=== PATIENT | male | born 1960 | race Caucasian/White ===

== ENCOUNTER 2022-09-21 15:37 | Inpatient (IN) | payer OTHER ==
[~2022-09-21] VITALS: Ht 180.3 cm; Wt 86.2 kg
[2022-09-21 09:00] VITALS: BP 110/60
--- NOTE | 2022-09-21 16:05 | NUR ---
IV ESTABLISHED LEFT FOREARM 20G
[2022-09-21] MEDS ORDERED: MORPHINE SULFATE INJ 2 MG/ML DISP.SYRIN IV ONE (16:30)
[2022-09-21] MEDS ORDERED: IV NS 0.9% 1,000 ML BAG IV ONE (16:30)
[2022-09-21] MEDS ORDERED: ONDANSETRON HCL/PF 4 MG/2 ML VIAL IVP ONE (16:30)
[2022-09-21] MEDS ORDERED: ONDANSETRON HCL/PF 4 MG/2 ML VIAL ONE ×3 (16:32→18:01)
[2022-09-21] MEDS ORDERED: MORPHINE SULFATE INJ 2 MG/ML DISP.SYRIN ONE (16:33)
[2022-09-21] MEDS ORDERED: LIDOCAINE VISCOUS 2% UD 15 ML UDC MM ONE (17:00)
[2022-09-21] MEDS ORDERED: MAG HYDROX/AL HYDROX/SIMETH 30 ML UDC PO ONE (17:00)
[2022-09-21 17:09] LABS: BASOPHILS % (AUTO) 0.1 % (0.0-2.0); EOSINOPHILS % (AUTO) 0.1 % (0.0-6.0); HEMATOCRIT 53 % (39-51); HEMOGLOBIN 17.5 g/dL (13.5-17.5); LYMPHOCYTES # (AUTO) 3.6 K/uL (0.8-4.8); LYMPHOCYTES % (AUTO) 16.1 % (20.0-44.0); MEAN CORPUSCULAR HGB CONC 33 g/dl (31.0-36.0); MEAN CORPUSCULAR VOLUME 89 fL (80-96); MONOCYTES # (AUTO) 1.5 K/uL (0.1-1.30); MONOCYTES % (AUTO) 6.8 % (2.0-12.0); NEUTROPHILS # (AUTO) 17.4 K/uL (1.8-8.9); NEUTROPHILS % (AUTO) 76.9 % (43.0-81.0); PLATELET COUNT (AUTO) 359 K/uL (150-450); RED BLOOD CELL COUNT(AUTO) 5.95 MIL/uL (4.5-6.0); WHITE BLOOD COUNT (AUTO) 22.6 K/uL (4.3-11.0)
--- NOTE | 2022-09-21 17:16 | NUR ---
MOVE SHEET SUBMITTED.
--- NOTE | 2022-09-21 17:20 | NUR ---
PT STILL NAUSEATED AND VOMITED ABOUT 10CC EMISIS. NO BLOOD. REQUESTED ANOTHER ORDER OF ZOFRAN FROM MD. VERBAL ORDER GIVEN. HOLDING PO MEDS UNTIL PT IS NO LONGER NAUSEATED.
[2022-09-21 17:28] LABS: ALANINE AMINOTRANSFERASE 26 U/L (12-78); ALBUMIN 3.8 g/dL (3.4-5.0); ALKALINE PHOSPHATASE 130 U/L (46-116); ASPARTATE AMINOTRANSFERASE 31 U/L (15-37); BILIRUBIN,DIRECT 0.3 mg/dL (0.0-0.2); BILIRUBIN,TOTAL 0.7 mg/dL (0.2-1.0); CALCIUM, SERUM 9.7 mg/dL (8.5-10.1); CARBON DIOXIDE 28 mmol/L (21-32); CREATININE 1.8 mg/dL (0.6-1.3); GLUCOSE 168 mg/dL (74-106); LIPASE 110 U/L (73-393); TOTAL PROTEIN, SERUM 8.9 g/dL (6.4-8.2); UREA NITROGEN, BLOOD 35 mg/dL (7-18)
[2022-09-21 17:35] LABS: CHLORIDE 89 mmol/L (98-107); SODIUM SERUM 135 mmol/L (136-145)
[2022-09-21 17:42] LABS: POTASSIUM 2.5 mmol/L (3.5-5.1)
--- NOTE | 2022-09-21 17:45 | NUR ---
CRITICAL LAB POTASSIUM 2.5
[2022-09-21] MEDS ORDERED: ONDANSETRON HCL/PF - ER 4 MG/2 ML VIAL IV ONE (18:00)
[2022-09-21] MEDS ORDERED: LIDOCAINE VISCOUS 2% UD 15 ML UDC ONE ×2 (18:01→18:05)
[2022-09-21] MEDS ORDERED: MAG HYDROX/AL HYDROX/SIMETH 30 ML UDC ONE ×2 (18:01→18:06)
--- NOTE | 2022-09-21 18:02 | NUR ---
PT STATES HE IS NO LONGER NAUSEATED.
--- NOTE | 2022-09-21 18:14 | NUR ---
[facility] PAGED. AWAITING CALL BACK.
[2022-09-21] MEDS ORDERED: GABA600T12 PO (18:25)
[2022-09-21] MEDS ORDERED: QUET200T PO (18:25)
[2022-09-21] MEDS ORDERED: HYDR50TA61 PO (18:25)
[2022-09-21] MEDS ORDERED: HYDR-3980 PO (18:25)
--- NOTE | 2022-09-21 18:28 | NUR ---
URINE COLLECTED AND SENT TO LAB
--- NOTE | 2022-09-21 18:33 | NUR ---
COVID SWAB COLLECTED AND SENT TO LAB
--- NOTE | 2022-09-21 18:37 | NUR ---
PT'S FRIEND GAVE CONTACT INFO: CHAPARRO: [phone]
[2022-09-21 18:44] LABS: BILIRUBIN,URINE 1+ (NEGATIVE); COLOR,URINE DARK YELLOW (YELLOW); LEUKOCYTE ESTERASE ,URINE TRACE (NEGATIVE); NITRITE, URINE POSITIVE (NEGATIVE); PH,URINE 5.5 (5.0-8.0); PROTEIN,URINE 3+ mg/dl (NEGATIVE); UGLUCOSE TRACE mg/dL (NEGATIVE)
[2022-09-21] MEDS ORDERED: POTASSIUM CHLORIDE 20 MEQ TAB.PRT.SR PO ONE ×2 (19:00→19:59)
[2022-09-21] MEDS ORDERED: OCTREOTIDE 500 MCG in IV NS 0.9% 99 ML IV PRN (19:00)
[2022-09-21] MEDS ORDERED: MAG HYDROX/AL HYDROX/SIMETH 30 ML UDC PO PRN (19:00)
[2022-09-21] MEDS ORDERED: ZOLPIDEM TARTRATE 5 MG TABLET PO PRN (19:00)
[2022-09-21] MEDS ORDERED: MAGNESIUM HYDROXIDE 30 ML UDC PO PRN (19:00)
[2022-09-21] MEDS ORDERED: Z GUARD REMEDY 4 OZ OINT TP PRN (19:00)
--- NOTE | 2022-09-21 19:12 | NUR ---
FAX CLINICALS TO [facility] AT [phone]
--- NOTE | 2022-09-21 19:17 | NUR ---
CM GAVE VERBAL AUTH [id number]
--- NOTE | 2022-09-21 19:21 | NUR ---
FIREND'S INFORMATION: MR CHAPARRO TERRAZAS: [phone] ADDRESS: [facility] [address]. [place]ARI[place].
[2022-09-21 19:35] LABS: BACTERIA,URINE Moderate /HPF (None Seen); RBC,URINE 0-2 /HPF (0-2); SQUAMOUS EPITHELIAL CELL,UR Few /HPF (None Seen)
[2022-09-21 20:00] LABS: HEMOGLOBIN 15.8 g/dL (13.5-17.5)
[2022-09-21] MEDS ORDERED: PANTOPRAZOLE 40 MG VIAL ONE (20:14)
[2022-09-21] MEDS ORDERED: POTASSIUM CL. PREMIX PERIPHER. 50 ML ONE (20:14)
[2022-09-21] MEDS: PANTOPRAZOLE 40 MG VIAL IV SCH (20:16)
[2022-09-21] MEDS: IV D5/ 0.9% NACL 1,000 ML IV SCH (20:17)
[2022-09-21] MEDS: POTASSIUM CL. PREMIX PERIPHER. 50 ML IV SCH ×4 (20:18→23:51)
--- NOTE | 2022-09-21 20:28 | NUR ---
REPORT GIVEN TO DEJAN GABRIEL FOR VOLODYMYR
[2022-09-21] MEDS ORDERED: ACETAMINOPHEN 325 MG TABLET ONE (20:39)
--- NOTE | 2022-09-21 20:51 | NUR ---
PT TRANSPORTED TO 1ST FLOOR VIA ACLS PROTOCOL
[2022-09-21] MEDS ORDERED: hydrOXYzine 10 MG TABLET PO PRN (23:00)
[2022-09-22] VITALS: BP 128/71
[2022-09-22] MEDS: ONDANSETRON HCL/PF 4 MG/2 ML VIAL IVP PRN ×2 (00:20→08:10)
[2022-09-22] MEDS: POTASSIUM CL. PREMIX PERIPHER. 50 ML IV SCH ×3 (00:57→03:07)
[2022-09-22 04:00] VITALS: BP 119/69
[2022-09-22] MEDS: IV D5/ 0.9% NACL 1,000 ML IV SCH ×3 (04:02→19:00)
[2022-09-22 05:55] LABS: BASOPHILS # (AUTO) 0.1 K/uL (0.0-0.2); BASOPHILS % (AUTO) 0.4 % (0.0-2.0); EOSINOPHILS % (AUTO) 0.2 % (0.0-6.0); HEMATOCRIT 45 % (39-51); HEMOGLOBIN 14.9 g/dL (13.5-17.5); LYMPHOCYTES # (AUTO) 2.5 K/uL (0.8-4.8); LYMPHOCYTES % (AUTO) 17.5 % (20.0-44.0); MEAN CORPUSCULAR HGB CONC 33 g/dl (31.0-36.0); MEAN CORPUSCULAR VOLUME 92 fL (80-96); MONOCYTES # (AUTO) 1.7 K/uL (0.1-1.30); MONOCYTES % (AUTO) 11.9 % (2.0-12.0); NEUTROPHILS # (AUTO) 10.1 K/uL (1.8-8.9); PLATELET COUNT (AUTO) 186 K/uL (150-450); WHITE BLOOD COUNT (AUTO) 14.4 K/uL (4.3-11.0)
[2022-09-22 07:02] LABS: CALCIUM, SERUM 8.1 mg/dL (8.5-10.1); CREATININE 1.8 mg/dL (0.6-1.3); MAGNESIUM 2.2 mg/dL (1.8-2.4); PHOSPHORUS 3.7 mg/dL (2.5-4.9); POTASSIUM 4.4 mmol/L (3.5-5.1)
--- NOTE | 2022-09-22 07:10 | NUR ---
ADMITTED PT TO [facility] WITH DX OF UPPER GI BLEED WITH A HX OF BIPOLAR. ON RA, TOLERATING WELL, NO COMPLAINTS OF PAIN, A/O X4. ON SR, HR AT 80'S. SKIN INTACT, AMBULATORY WITH ASSIST, ABLE TO USE URINAL, AT BEDSIDE. NPO STATUS. IV ACCESS ON LFA G#20 INFUSING D5NS AT 125ML/HR. DUE MEDS AND PRN MEDS GIVEN NEEDED AND ORDERED. NEEDS ATTENDED. SAFETY MEASURES MAINTAINED. HOB ELEVATED. WILL ENDORSE TO NEXT NURSE ON DUTY FOR CONTINUITY OF CARE.
--- NOTE | 2022-09-22 07:46 | NUR ---
VAULT CLERK OPENING NOTES RECEIVED PATIENT ASLEEP IN BED, RESPONDS TO VERBAL AND TACTILE STIMULI. A/Ox4 ABLE TO MAKE NEEDS KNOWN. ON ROOM AIR, NO S/S OF RESPIRATORY DISTRESS. IV ACCESS LFA #20G CURRENTLY RUNNING D5NS @125 ML/HR. INTACT AND PATENT, NO S/S OF INFILTRATION. ON TELE MONITORING SHOWING SINUS RHYTHM HR 60. NO C/O OF CHEST PAIN OR DISCOMFORT. PATIENT AMB WITH ASSIST, USES URINAL AND BATHROOM. CURRENTLY NPO. SKIN IS INTACT. SAFETY MEASURES IN PLACE: BED LOCKED AND IN LOWEST POSITION, SIDE RAILS UPx2, CALL LIGHT WITHIN REACH, AND HOB ELEVATED. WILL CONTINUE TO MONITOR.
[2022-09-22 08:00] VITALS: BP 116/68
[2022-09-22] MEDS: PANTOPRAZOLE 40 MG VIAL IV SCH ×2 (08:09→21:00)
[2022-09-22] MEDS: NICOTINE PATCH (14MG) 14 MG PATCH.TD24 TD SCH (08:09)
[2022-09-22] MEDS: GABAPENTIN 300 MG CAPSULE PO SCH ×3 (08:17→16:55)
[2022-09-22] MEDS: QUETIAPINE FUMARATE 100 MG TABLET PO SCH ×2 (08:17→16:55)
--- NOTE | 2022-09-22 08:41 | NUR ---
RN NOTES PATIENT COMPLAINED OF NAUSEA, PRN ZOFRAN ADMINISTERED, NAUSEA IMPROVED. WILL CONTINUE TO MONITOR.
[2022-09-22] MEDS: MORPHINE SULFATE INJ 2 MG/ML DISP.SYRIN IV PRN ×3 (09:58→22:32)
--- NOTE | 2022-09-22 10:46 | NUR ---
RN NOTES PATIENT COMPLAINED OF PAIN OF HIS ABDOMEN. PRN MORPHINE ADMINISTERED. WILL CONTINUE TO MONITOR.
[2022-09-22 12:00] VITALS: BP 130/71
--- NOTE | 2022-09-22 12:51 | NUR ---
RN NOTES SURGERY CALLED, PATIENT IS SET FOR EGD TONIGHT @[address] ACEVEDO. CONSENT AND OTHER FORMS SIGNED, FILED INTO CHART. PATIENT CONTINUES TO BE NPO, WILL CONTINUE TO MONITOR.
[2022-09-22 16:00] VITALS: BP 131/76
--- NOTE | 2022-09-22 16:56 | NUR ---
RN NOTES PATIENT COMPLAINED OF ABDOMINAL PAIN, PRN MORPHINE ADMINISTERED. PATIENT SAID THAT PAIN AND NAUSEA IS BETTER AFTER PRN MORPHINE. WILL CONTINUE TO MONITOR.
[2022-09-22] MEDS ORDERED: FENTANYL PF 100MCG/2ML AMPUL ONE (18:31)
[2022-09-22] MEDS ORDERED: FAMOTIDINE/PF INJ 20 MG/2 ML VIAL IV ONE (18:32)
[2022-09-22] MEDS ORDERED: SUCCINYLCHOLINE CHLORIDE 20 MG/ML VIAL ONE (18:33)
--- NOTE | 2022-09-22 18:50 | NUR ---
READING EFFICIENCY COURSE DIRECTOR CLOSING NOTES PATIENT TAKEN TO OR FOR EGD, STABLE ON ROOM AIR, A/Ox4 ABLE TO MAKE NEEDS KNOWN. PATIENT LEFT WITH TWO OR STAFF. V/S STABLE. WILL ENDORSE TO PHOTO CARTOGRAPHER.
--- NOTE | 2022-09-22 19:57 | NUR ---
This patient is away from his room undergoing a procedure as the shift begins. No assessment can take place at this time. Previous nurse has given report of the patient's medical status before he was transportation.
[2022-09-22] MEDS: SUCRALFATE 1 G/10 ML UDC GT SCH (21:44)
[2022-09-22] MEDS: ACETAMINOPHEN 325 MG TABLET PO PRN (22:10)
[2022-09-22 23:06] LABS: HEMOGLOBIN 13.4 g/dL (13.5-17.5)
--- NOTE | 2022-09-22 23:49 | NUR ---
Jeff patient was away from his room at 2000 Addendum: 09/22/22 at 2350 by [facility]RY [facility] INPATIENT RN5 RN Amended: Links added.
[2022-09-23 01:00] VITALS: BP 107/54
[2022-09-23] MEDS: IV D5/ 0.9% NACL 1,000 ML IV SCH ×3 (03:32→20:36)
[2022-09-23] MEDS: MORPHINE SULFATE INJ 2 MG/ML DISP.SYRIN IV PRN ×4 (03:41→22:55)
[2022-09-23 04:00] VITALS: BP 103/51
[2022-09-23 06:56] LABS: BASOPHILS # (AUTO) 0.1 K/uL (0.0-0.2); BASOPHILS % (AUTO) 0.2 % (0.0-2.0); EOSINOPHILS % (AUTO) 0.4 % (0.0-6.0); HEMATOCRIT 40 % (39-51); HEMOGLOBIN 12.9 g/dL (13.5-17.5); LYMPHOCYTES # (AUTO) 2.1 K/uL (0.8-4.8); LYMPHOCYTES % (AUTO) 9.1 % (20.0-44.0); MEAN CORPUSCULAR HGB CONC 32 g/dl (31.0-36.0); MEAN CORPUSCULAR VOLUME 89 fL (80-96); MONOCYTES # (AUTO) 0.6 K/uL (0.1-1.30); MONOCYTES % (AUTO) 2.7 % (2.0-12.0); NEUTROPHILS # (AUTO) 20.4 K/uL (1.8-8.9); NEUTROPHILS % (AUTO) 87.6 % (43.0-81.0); PLATELET COUNT (AUTO) 179 K/uL (150-450); RED BLOOD CELL COUNT(AUTO) 4.48 MIL/uL (4.5-6.0); WHITE BLOOD COUNT (AUTO) 23.3 K/uL (4.3-11.0)
[2022-09-23] MEDS: ACETAMINOPHEN 325 MG TABLET PO PRN (07:44)
[2022-09-23 07:45] LABS: CALCIUM, SERUM 8.1 mg/dL (8.5-10.1); CREATININE 1.3 mg/dL (0.6-1.3); MAGNESIUM 1.7 mg/dL (1.8-2.4); PHOSPHORUS 2.4 mg/dL (2.5-4.9); POTASSIUM 3.8 mmol/L (3.5-5.1)
[2022-09-23] MEDS: SUCRALFATE 1 G/10 ML UDC GT SCH (07:50)
[2022-09-23] MEDS: PANTOPRAZOLE 40 MG VIAL IV SCH (07:51)
[2022-09-23 08:00] VITALS: BP 127/69
[2022-09-23] MEDS: NICOTINE PATCH (14MG) 14 MG PATCH.TD24 TD SCH (09:00)
[2022-09-23] MEDS: QUETIAPINE FUMARATE 100 MG TABLET PO SCH ×2 (09:01→17:09)
[2022-09-23] MEDS: GABAPENTIN 300 MG CAPSULE PO SCH ×3 (09:01→17:09)
[2022-09-23] MEDS: ONDANSETRON HCL/PF 4 MG/2 ML VIAL IVP PRN (09:20)
[2022-09-23] MEDS: SUCRALFATE 1 G TABLET PO SCH ×3 (11:58→12:14)
[2022-09-23 12:00] VITALS: BP 125/72
[2022-09-23] MEDS ORDERED: SUCRALFATE 1 G TABLET GT SCH (12:00)
[2022-09-23] MEDS ORDERED: Magnesium 1GM/D5W 100ML PREMIX 100 ML IV SCH (12:00)
--- NOTE | 2022-09-23 12:35 | NUR ---
SS Consult: SS consult requested for homelessness and alcohol dependence referrals. The pt. is a 62-year-old male pt. who was admitted to [facility] due to Hematemesis per EMR. Upon SS consult, the pt. is Alert & Oriented x 4 and makes good eye contact. The pt. appears unkempt with a flushed face. Pt. has euthymic mood & flat affect. Pt.s speech is lightly slurred possibly due to missing dentures otherwise clear speech. Pt. remained calm & cooperative throughout interview. Pt. denies SI/HI and denies visual hallucinations. Per pt. he has some minimal non-commanding auditory hallucinations. SW explored pt.s living situation. Per pt. he was staying at a friend, Tom Renteria home near [facility] and began drinking Vodka he had been sober prior but has Hx. of alcohol abuse in the past. Pt. stated he was drinking for a total of 4 days and began throwing up with abdominal pain and decided to seek medical attention for this. SW explored pt.s drug & ETOH use. Pt. states he was sober recently. SW use motivational interviewing and provided psychoeducation on alcohol dependence. SW provided pt. with alcohol rehab referrals and pt. refused resources. SW explored pt.s Hx. of mental health. Pt. states he has been diagnosed with Schizophrenia and Bipolar Disorder in the past and is taking medication (Gabapentin, Seroquel, Invega and Hydroxyzine) for his mental health. The pt. stated he is ambulatory but also uses electric wheelchair as he hurt his foot in the past and is independent with his ADLs. Pt. states he receives mental health and case management services at [facility] and his case manager specialist is Sophie [phone] who is helping him find housing as he has a section 8 voucher. Per pt. his psychiatrist is Dr. Romero and therapist, Candace [phone] from the same organization and she will bring him clothing and his glasses tomorrow morning. Per pt. he receives food stamps and SSI. Plan: Per pt. he cannot return to live at his friends house as they are heavy drinkers and he does not want to drink. Pt. states he will get a cab to his friends house to obtain his electric wheelchair and belongings. Per pt., from there he will either go with his Sophie to his section 8 housing if possible. Otherwise he has already contacted a sober living in [facility] where he has been in the past. They stated they have a bed available for him and he can pay weekly until his housing becomes available. MAIN discussed with Emely TAM. SW provided pt. with homeless and addiction resources, and he refused them. Pt. signed homeless waiver and it was placed in the pt.s chart. [facility] list : [facility]; [facility] Adult WSP site; [facility] Adult WSP site; and [facility] Adult WSP site; instruction to call 211 for availability. Year-round shelters: [facility] [address] [place] [address] ; [facility] [address] [place] [address]; [facility] [address] [facility]. [facility] [address] Hygiene: [facility] [address] [facility] ; [facility] [address] [facility] ; [facility] [address] [facility] . Food Resources: [place] [facility] at [facility]- [address] [facility]; Meet Each Need with Dignity ([facility]) [address] [facility]; [facility] 4394 [facility]; [facility] 1268 [facility]. Mental Health resources provided: [facility] [address] [place] [address] ; [facility] [address] [facility] [address], [place] [address] ; Danelle Godinez [facility] [address] [place] [address] ; [facility] [place] [address] Healthcare Clinics: [facility] [address] [facility], [address] [place]. [place] ; [facility] [address] [facility] [address] [facility] [address]; [facility] [address] [facility] [phone]) [phone] Counseling--Outpatient [facility] [address] [facility], [place] [address] (Specializes in in-depth psychotherapy for emotional distress: anxiety, depression, interpersonal conflicts, life transitions, childhood abuse) [facility]ance Center [address] [place] [address] (Assist with solving problem marital difficulties, separation & divorce, aging parents, & grief, chronic & terminal illness) [facility] [address] [place] [address] (Deal with loss & grief, anxiety, marital difficulties) Homebound/Mental Health Services [address] [facility] [address] [place] [address] (Provide in-home mental services to people who are incapable of leaving their homes) [facility]eds of the Elderly Senior Service/Resource Center [address] [place] [address] [facility] [address] [facility] [place] [address] PSYCHIATRIC OUTPATIENT SERVICES [facility] Partial Hospitalization and Intensive Outpatient Program (Managed Care and [place] Only)[address] [facility]. [facility] [phone] [facility] Partial Hospitalization and Outpatient Vasofro[address] [facility] [address] [place], [place] [phone] [facility] Cml[address] [facility] [address] [place], [place] [phone] [facility] Partial Hospitalization and Outpatient Dsqpoop[address] [place], [phone] Substance Abuse resources provided included: [facility] Substance Abuse Self-Helpline ([facility]) ; [facility] [address] [facility]. [place] [address] ; [facility] [address] [facility] [address] ; [facility] Rehabilitation [facility] [address] [place] [facility] [phone] ; [facility] [address] [facility] [phone] ; [facility] [address] [facility] [address] ; [facility] 906 [facility] [phone] ; [facility] Substance Abuse Helpline([facility])-[facility] ; [facility] Family [facility] ; [facility]; [facility] [place]; [facility] [place]; [facility]; [facility]; [facility]; [facility] [place]; Alcoholics Anonymous -SFV; Aq-Dwak-Znqjzih ; Marijuana Anonymous -[facility]V; Narcotics Anonymous www.na.org;
[2022-09-23] MEDS ORDERED: K PHOS NEUTRAL 250 MG TABLET PO ONE (13:00)
--- NOTE | 2022-09-23 13:00 | NUR ---
bladder scan less then 200ml , no no paz catheter insertion
[2022-09-23] MEDS ORDERED: PHENAZOPYRIDINE HCL 200 MG TABLET PO PRN (14:00)
[2022-09-23 15:18] LABS: BILIRUBIN,URINE NEGATIVE (NEGATIVE); COLOR,URINE YELLOW (YELLOW); LEUKOCYTE ESTERASE ,URINE NEGATIVE (NEGATIVE); NITRITE, URINE NEGATIVE (NEGATIVE); PH,URINE 6.5 (5.0-8.0); PROTEIN,URINE NEGATIVE (NEGATIVE); UGLUCOSE NEGATIVE (NEGATIVE); UROBILINOGEN,URINE 0.2 EU/dL (0.2)
[2022-09-23 16:00] VITALS: BP 137/70
[2022-09-23 20:00] VITALS: BP 102/49
[2022-09-23 20:18] LABS: HEMOGLOBIN 11.8 g/dL (13.5-17.5)
[2022-09-23] MEDS: PANTOPRAZOLE 40 MG TABLET.DR PO SCH (20:33)
[2022-09-24] VITALS: BP 90/47
[2022-09-24] MEDS: IV D5/ 0.9% NACL 1,000 ML IV SCH (03:29)
[2022-09-24] MEDS: ONDANSETRON HCL/PF 4 MG/2 ML VIAL IVP PRN (03:30)
--- NOTE | 2022-09-24 03:30 | NUR ---
RN NOTE PT REPORTS OF FEELING NAUSEOUS; PT ADMINISTERED ZOFRAN.
[2022-09-24 04:00] VITALS: BP 119/50
[2022-09-24] MEDS: ACETAMINOPHEN 325 MG TABLET PO PRN (04:49)
[2022-09-24] MEDS: MORPHINE SULFATE INJ 2 MG/ML DISP.SYRIN IV PRN ×2 (04:50→10:51)
[2022-09-24 07:47] LABS: BASOPHILS % (AUTO) 0.3 % (0.0-2.0); EOSINOPHILS % (AUTO) 3.4 % (0.0-6.0); HEMATOCRIT 36 % (39-51); HEMOGLOBIN 11.5 g/dL (13.5-17.5); LYMPHOCYTES # (AUTO) 2.5 K/uL (0.8-4.8); LYMPHOCYTES % (AUTO) 20.9 % (20.0-44.0); MEAN CORPUSCULAR HGB CONC 32 g/dl (31.0-36.0); MEAN CORPUSCULAR VOLUME 90 fL (80-96); MONOCYTES # (AUTO) 0.9 K/uL (0.1-1.30); MONOCYTES % (AUTO) 7.5 % (2.0-12.0); NEUTROPHILS % (AUTO) 67.9 % (43.0-81.0); PLATELET COUNT (AUTO) 159 K/uL (150-450); RED BLOOD CELL COUNT(AUTO) 3.95 MIL/uL (4.5-6.0); WHITE BLOOD COUNT (AUTO) 11.8 K/uL (4.3-11.0)
[2022-09-24 08:00] VITALS: BP 115/64
[2022-09-24 08:04] LABS: CALCIUM, SERUM 7.7 mg/dL (8.5-10.1); MAGNESIUM 1.7 mg/dL (1.8-2.4); PHOSPHORUS 2.3 mg/dL (2.5-4.9); POTASSIUM 3.3 mmol/L (3.5-5.1)
[2022-09-24] MEDS: PANTOPRAZOLE 40 MG TABLET.DR PO SCH (08:42)
[2022-09-24] MEDS: GABAPENTIN 300 MG CAPSULE PO SCH ×2 (08:43→12:30)
[2022-09-24] MEDS: QUETIAPINE FUMARATE 100 MG TABLET PO SCH (08:43)
[2022-09-24] MEDS: NICOTINE PATCH (14MG) 14 MG PATCH.TD24 TD SCH (08:44)
[2022-09-24] MEDS ORDERED: IV D5/ 0.9% NACL 1,000 ML IV PRN (10:02)
[2022-09-24] MEDS ORDERED: POTASSIUM CHLORIDE 20 MEQ TAB.PRT.SR PO SCH (10:30)
[2022-09-24] MEDS ORDERED: MAGNESIUM OXIDE 400 MG TABLET PO ONE (10:30)
--- NOTE | 2022-09-24 11:00 | NUR ---
pt is alert orientedx4, pt ate breakfast 100% and requesting pain medication morphine 2mg ivpb given, no any s/s of side effect or any adverse reaction noted, no s/s of any bleeding noted, pt is on bed and gave report pt to other nurse given all 9am and 7:30 medication given and lowest placement of bed and locked wheels, 2 side rails up, call light within reach
--- NOTE | 2022-09-24 11:30 | NUR ---
RN note Received handover from NERY Olmos. Patient is alert and conscious upon handover, GCS 15/15. He has changed his clothes and ready for discharge. Personal belongings were retrieved and returned with the witness of NERY Foster. Patient opened the bag containing the money by himself. THe amount is counted and is correct. All the money and three bottles of medications have been returned to patient. Patient signed the form on the belongings list to confirm return.
[2022-09-24] MEDS: SUCRALFATE 1 G TABLET PO SCH (12:30)
--- NOTE | 2022-09-24 12:30 | NUR ---
RN note liquor department manager called to say that the transport time would be 13:30, informed patient. IV cannula has been removed.
--- NOTE | 2022-09-24 13:00 | NUR ---
RN note Noted that patient has left the room and took all of his belongings with him.
== END 2022-09-24 13:17 | disposition home or self-care (01) | DRG 241 ==
LOC: ER 15:44 → TELE1 19:56
PROVIDERS: ADMIT Student in an Organized Health Care Education/Training Program; ATTEND Student in an Organized Health Care Education/Training Program
PROC: 0DB68ZX Excision of Stomach, Via Natural or Artificial Opening Endoscopic, Diagnostic (ICD-10-PCS; principal; 2022-09-22)
DX: K29.71 Gastritis, unspecified, with bleeding (principal); N17.0 Acute kidney failure with tubular necrosis; E87.1 Hypo-osmolality and hyponatremia; E87.6 Hypokalemia; N39.0 Urinary tract infection, site not specified; Z20.822 Contact with and (suspected) exposure to COVID-19; F31.9 Bipolar disorder, unspecified; Z79.899 Other long term (current) drug therapy; Y90.9 Presence of alcohol in blood, level not specified; K57.30 Diverticulosis of large intestine without perforation or abscess without bleeding; E83.42 Hypomagnesemia; N20.0 Calculus of kidney; F10.10 Alcohol abuse, uncomplicated; E86.1 Hypovolemia; Z72.0 Tobacco use; K20.91 Esophagitis, unspecified with bleeding
CPT/HCPCS: 36415; 76770-TC; 80048-TC; 80076-TC; 81001; 83690-TC; 83735-TC; 84100-TC; 84484-TC; 85025-TC; 85027-TC; 85730-TC; 87081-TC; 87086-TC; 88305-TC; 88313-TC; 88342; 97112-TC; 97116-TC; 97530-TC; C9113; C9803; G0378; J0330; J2270; J2354; J2405; J2704; J2765; J3010; J3475; J3480; J3490; J7030; J7042

== ENCOUNTER 2022-11-05 08:50 | Emergency (ER) | payer OTHER ==
[~2022-11-05] VITALS: Ht 180.3 cm; Wt 81.6 kg
[~2022-11-05 08:50] MED LIST: GABA600T12 PO; HYDR-3980 PO; HYDR50TA61 PO; QUET200T PO
--- NOTE | 2022-11-05 08:55 | NUR ---
RECEIVED PT 89 YRS MALE CAME FROM HOME WITH ELECTE WC AWAKE AND ALERT C/O epegastcic pain for 2 yrs abdominal pain and unable to eat food stack dineses any N/V
--- NOTE | 2022-11-05 09:10 | NUR ---
SEEN BY PROVIDER
[2022-11-05] MEDS ORDERED: MORPHINE SULFATE INJ 2 MG/ML DISP.SYRIN IV ONE (09:30)
[2022-11-05] MEDS ORDERED: IV NS 0.9% 1,000 ML BAG IV ONE (09:30)
[2022-11-05] MEDS ORDERED: PANTOPRAZOLE 40 MG VIAL IV ONE (09:30)
[2022-11-05] MEDS ORDERED: MORPHINE SULFATE INJ 4 MG/ML DISP.SYRIN ONE (09:42)
[2022-11-05] MEDS ORDERED: PANTOPRAZOLE 40 MG VIAL ONE (09:42)
--- NOTE | 2022-11-05 10:00 | NUR ---
inserted ango catheter lt hand blood drow and sent to lab
--- NOTE | 2022-11-05 10:05 | NUR ---
SEEN BY DR. MARCH
[2022-11-05 10:21] LABS: BASOPHILS % (AUTO) 0.2 % (0.0-2.0); EOSINOPHILS % (AUTO) 1.4 % (0.0-6.0); HEMATOCRIT 45 % (39-51); HEMOGLOBIN 14.9 g/dL (13.5-17.5); LYMPHOCYTES # (AUTO) 1.8 K/uL (0.8-4.8); LYMPHOCYTES % (AUTO) 19.5 % (20.0-44.0); MEAN CORPUSCULAR HGB CONC 33 g/dl (31.0-36.0); MEAN CORPUSCULAR VOLUME 90 fL (80-96); MONOCYTES # (AUTO) 0.6 K/uL (0.1-1.30); MONOCYTES % (AUTO) 6.5 % (2.0-12.0); NEUTROPHILS # (AUTO) 6.5 K/uL (1.8-8.9); NEUTROPHILS % (AUTO) 72.4 % (43.0-81.0); PLATELET COUNT (AUTO) 273 K/uL (150-450); RED BLOOD CELL COUNT(AUTO) 4.99 MIL/uL (4.5-6.0)
[2022-11-05 10:26] LABS: CALCIUM, SERUM 8.6 mg/dL (8.5-10.1); CREATININE 1.2 mg/dL (0.6-1.3); POTASSIUM 3.6 mmol/L (3.5-5.1)
[2022-11-05 10:32] LABS: ALBUMIN 3.4 g/dL (3.4-5.0); BILIRUBIN,DIRECT 0.2 mg/dL (0.0-0.2); BILIRUBIN,TOTAL 0.4 mg/dL (0.2-1.0); TOTAL PROTEIN, SERUM 7.2 g/dL (6.4-8.2)
[2022-11-05] MEDS ORDERED: IV NS 0.9% 250 ML IV ONE (10:40)
[2022-11-05] MEDS ORDERED: IOHEXOL-300 100 ML VIAL IV ONE (10:40)
[2022-11-05] MEDS ORDERED: CT SWABBABLE VALVE TRANS SET 1 EA INFUS.SET MC ONE (10:40)
--- NOTE | 2022-11-05 10:45 | NUR ---
UA SENT TO LAB
--- NOTE | 2022-11-05 11:04 | NUR ---
TO CT SCAN OF ABDOMIN
[2022-11-05] MEDS ORDERED: HYDROMORPHONE 1 MG/1 ML DISP.SYRIN ONE (11:27)
[2022-11-05 11:30] LABS: BILIRUBIN,URINE NEGATIVE (NEGATIVE); COLOR,URINE YELLOW (YELLOW); LEUKOCYTE ESTERASE ,URINE NEGATIVE (NEGATIVE); NITRITE, URINE NEGATIVE (NEGATIVE); PROTEIN,URINE NEGATIVE (NEGATIVE); UGLUCOSE NEGATIVE (NEGATIVE); UROBILINOGEN,URINE 0.2 EU/dL (0.2)
[2022-11-05] MEDS ORDERED: HYDROMORPHONE 1 MG/1 ML DISP.SYRIN IV ONE (11:30)
--- NOTE | 2022-11-05 12:04 | NUR ---
RESTING AND ASLEEPY
--- NOTE | 2022-11-05 13:45 | NUR ---
BLOOD DROW BY LAB TACH
--- NOTE | 2022-11-05 15:05 | NUR ---
started procedure sedution AND RT AT BED SIDE AND NURSE RN AT BED SIDE PROCEDURE STRTED
[2022-11-05] MEDS ORDERED: MAG355OR18 PO (16:09)
[2022-11-05] MEDS ORDERED: HYDR-3976 PO (16:09)
[2022-11-05] MEDS ORDERED: ONDA4TAB5 PO (16:09)
[2022-11-05] MEDS ORDERED: PANT40TA2 PO (16:09)
--- NOTE | 2022-11-05 16:20 | NUR ---
IV removed. Catheter intact and site benign. Pressure and 4x4 applied to site. No bleeding noted.
--- NOTE | 2022-11-05 16:25 | NUR ---
Patient discharged to home in stable condition. Written and verbal after care instructions given. Patient verbalizes understanding of instruction.
[2022-11-05 16:29] VITALS: BP 120/77
== END 2022-11-05 16:30 | disposition home or self-care (01) ==
LOC: ER 08:59
DX: R10.9 Unspecified abdominal pain (principal)
CPT/HCPCS: 99285; 74177; 96374; 76705; 71045; 96375; 96361; 93005; 85025; 80048; 83690; 80076; 83735; 81003; 36415; 84484 ×2; 85730; J2270; J7050; C9113; Q9967; J1170

== ENCOUNTER 2022-11-08 11:28 | Inpatient (IN) | payer OTHER ==
[~2022-11-08] VITALS: Ht 180.3 cm; Wt 81.6 kg
[~2022-11-08 11:28] MED LIST changes: +HYDR-3976 PO; +MAG355OR18 PO; +ONDA4TAB5 PO; +PANT40TA2 PO
--- NOTE | 2022-11-08 11:35 | NUR ---
BIB 878 FROM HOME C/O ABDOMINAL PAIN AND NAUSEA X3 DAYS, PAIN 06/14
[2022-11-08] MEDS ORDERED: ONDANSETRON HCL/PF 4 MG/2 ML VIAL IVP ONE ×2 (12:00→13:30)
[2022-11-08] MEDS ORDERED: IV NS 0.9% 500 ML BAG IV ONE (12:00)
[2022-11-08] MEDS ORDERED: ONDANSETRON HCL/PF 4 MG/2 ML VIAL ONE ×3 (12:14→13:09)
--- NOTE | 2022-11-08 12:30 | NUR ---
established iv line 20 g left forearm
--- NOTE | 2022-11-08 12:35 | NUR ---
blood sample obtained
[2022-11-08 12:53] LABS: BASOPHILS % (AUTO) 0.2 % (0.0-2.0); EOSINOPHILS % (AUTO) 0.1 % (0.0-6.0); HEMATOCRIT 49 % (39-51); HEMOGLOBIN 16.2 g/dL (13.5-17.5); LYMPHOCYTES # (AUTO) 1.2 K/uL (0.8-4.8); LYMPHOCYTES % (AUTO) 6.9 % (20.0-44.0); MEAN CORPUSCULAR HGB CONC 33 g/dl (31.0-36.0); MEAN CORPUSCULAR VOLUME 92 fL (80-96); MONOCYTES # (AUTO) 0.9 K/uL (0.1-1.30); MONOCYTES % (AUTO) 5.5 % (2.0-12.0); NEUTROPHILS # (AUTO) 14.7 K/uL (1.8-8.9); NEUTROPHILS % (AUTO) 87.3 % (43.0-81.0); PLATELET COUNT (AUTO) 390 K/uL (150-450); RED BLOOD CELL COUNT(AUTO) 5.33 MIL/uL (4.5-6.0); WHITE BLOOD COUNT (AUTO) 16.9 K/uL (4.3-11.0)
[2022-11-08] MEDS ORDERED: ONDANSETRON HCL/PF - ER 4 MG/2 ML VIAL IV ONE (13:00)
[2022-11-08 13:06] LABS: CARBON DIOXIDE 25 mmol/L (21-32); CHLORIDE 98 mmol/L (98-107); CREATININE 1.2 mg/dL (0.6-1.3); GLUCOSE 147 mg/dL (74-106); POTASSIUM 3.3 mmol/L (3.5-5.1); SODIUM SERUM 140 mmol/L (136-145); UREA NITROGEN, BLOOD 18 mg/dL (7-18)
[2022-11-08 13:13] LABS: ALANINE AMINOTRANSFERASE 15 U/L (12-78); ALCOHOL, BLOOD < 3 mg/dL (0-0); ALKALINE PHOSPHATASE 136 U/L (46-116); ASPARTATE AMINOTRANSFERASE 20 U/L (15-37); BILIRUBIN,DIRECT 0.3 mg/dL (0.0-0.2); TOTAL PROTEIN, SERUM 8.5 g/dL (6.4-8.2)
[2022-11-08] MEDS ORDERED: ACETAMINOPHEN 325 MG TABLET PO PRN (13:30)
[2022-11-08] MEDS ORDERED: IV NS 0.9% 1,000 ML BAG IV ONE (13:30)
[2022-11-08] MEDS ORDERED: Z GUARD REMEDY 4 OZ OINT TP PRN (13:30)
[2022-11-08] MEDS ORDERED: ONDANSETRON HCL/PF 4 MG/2 ML VIAL IVP PRN (13:30)
[2022-11-08] MEDS ORDERED: MAG HYDROX/AL HYDROX/SIMETH 30 ML UDC PO PRN ×2 (13:30)
[2022-11-08] MEDS ORDERED: LORAZEPAM INJ 2 MG/ML VIAL IV ONE (13:30)
[2022-11-08] MEDS ORDERED: MAGNESIUM HYDROXIDE 30 ML UDC PO PRN (13:30)
[2022-11-08] MEDS ORDERED: PALI9TAB PO (13:37)
--- NOTE | 2022-11-08 13:48 | NUR ---
PT TAKEN TO CT VIA JULIOT
--- NOTE | 2022-11-08 13:50 | NUR ---
covid swab taken
[2022-11-08] MEDS ORDERED: hydrOXYzine PAMOATE 25 MG CAPSULE PO PRN (14:00)
[2022-11-08] MEDS ORDERED: LORAZEPAM INJ 2 MG/ML VIAL ONE (14:09)
--- NOTE | 2022-11-08 14:35 | NUR ---
urine sample obtained
--- NOTE | 2022-11-08 14:55 | NUR ---
Carmela antunez in [facility] - 11/08/22 at 1457 by CELENA room - [facility]
--- NOTE | 2022-11-08 15:21 | NUR ---
CHAPARRO TERRAZAS (FRIEND) [phone]
[2022-11-08 15:30] LABS: BILIRUBIN,URINE 2+ (NEGATIVE); COLOR,URINE YELLOW (YELLOW); LEUKOCYTE ESTERASE ,URINE NEGATIVE (NEGATIVE); NITRITE, URINE NEGATIVE (NEGATIVE); PH,URINE 6.5 (5.0-8.0); PROTEIN,URINE 2+ mg/dl (NEGATIVE); UGLUCOSE NEGATIVE (NEGATIVE)
[2022-11-08 15:59] LABS: BACTERIA,URINE None seen /HPF (None Seen); MUCUS,URINE Few /LPF (None Seen); RBC,URINE 0-2 /HPF (0-2); SQUAMOUS EPITHELIAL CELL,UR 0-2 /HPF (None Seen); WBC,URINE 0-2 /HPF (0-3)
--- NOTE | 2022-11-08 17:17 | NUR ---
room [facility]
--- NOTE | 2022-11-08 17:21 | NUR ---
report given to Althea GABRIEL
[2022-11-08] MEDS: IV NS 0.9% 1,000 ML IV PRN (17:48)
[2022-11-08] MEDS: GABAPENTIN 300 MG CAPSULE PO SCH (17:48)
[2022-11-08] MEDS: QUETIAPINE FUMARATE 100 MG TABLET PO SCH (17:48)
[2022-11-08 18:00] VITALS: BP 134/60
--- NOTE | 2022-11-08 18:00 | NUR ---
moved to inpatient room safely.
--- NOTE | 2022-11-08 18:05 | NUR ---
PLANING MACHINE OPERATOR NOTE PT IS A/OX4. PT IS ON RA BREATHING EVEN AND NON LABORED. NO SOB NOTED OR DISTRESS NOTED. IV ACCESS LFA #20G, PATENT AND INTACT. PATIENT WAS TRANSFERRED FROM ER VIA GURNEY WITH NO SIGN OF DISTRESS. PT HAS HX OF PTSD AND ALCOHOL DRINKER. ORIENTED PATIENT TO ROOM SET UP AND EDUCATED ON THE USE OF CALL LIGHT, PT VERBALIZED UNDERSTANDING. VS TAKEN, STABLE AND RECORDED. SKIN ASSESSMENT DONE, SKIN IS INTACT. ALL BELONGING CHECKED AND BELONGING LIST SIGNED. SAFETY PRECAUTIONS IN PLACE: BED LOCKED AND IN LOW POSITION, SIDE RAILS UP X2, BED ALARM ON, CALL LIGHT AND TRAY AND TABLE WITHIN REACH.
--- NOTE | 2022-11-08 18:45 | NUR ---
RN CLOSING NOTE PT IS A/OX4. PT IS ON RA BREATHING EVEN AND NON LABORED. NO SOB NOTED OR DISTRESS NOTED. IV ACCESS LFA #20G, PATENT AND INTACT, RUNNING NS @75 ML.HR. DUE MEDICATIONS GIVEN. SAFETY PRECAUTIONS IN PLACE: BED LOCKED AND IN LOW POSITION, SIDE RAILS UP X2, BED ALARM ON, CALL LIGHT AND TRAY AND TABLE WITHIN REACH. WILL ENDORSE TO CHRONOMETER ADJUSTER NURSE FOR VOLODYMYR.
--- NOTE | 2022-11-08 19:40 | NUR ---
MS RN OPENING NOTE RECEIVED PT AWAKE, IN BED. PT IS A/OX4, ABLE TO VERBALIZE NEEDS. ON RA BREATHING EVEN AND NON LABORED. NO SOB NOTED OR DISTRESS NOTED. IV ACCESS LEFT FA #20G, PATENT AND INTACT. SKIN IS INTACT. SAFETY PRECAUTIONS IN PLACE: BED LOCKED AND IN LOW POSITION, SIDE RAILS UP X2, BED ALARM ON, CALL LIGHT AND TABLE WITHIN REACH. WILL CONTINUE TO MONITOR PT.
[2022-11-08 20:00] VITALS: BP 110/57
[2022-11-08] MEDS: CHLORDIAZEPOXIDE HCL 5 MG CAPSULE PO SCH (21:14)
--- NOTE | 2022-11-08 21:15 | NUR ---
RN NOTE PT REPORT ACID REFLUX. MAALOX ADMINISTERED TO PT.
[2022-11-09] MEDS ORDERED: POTASSIUM CHLORIDE 20 MEQ TAB.PRT.SR PO ONE (04:00)
--- NOTE | 2022-11-09 05:00 | NUR ---
RN NOTE PT'S POTASSIUM LEVEL IS 3.3. MD CLARKE CALLED, AND MADE AWARE. ORDER RECEIVED FOR 20MEQ POTASSIUM X1. ORDER CARRIED OUT, AND IMPLEMENTED. PT IS GIVEN POTASSIUM PO.
[2022-11-09] MEDS: CHLORDIAZEPOXIDE HCL 5 MG CAPSULE PO SCH ×3 (05:13→21:07)
--- NOTE | 2022-11-09 06:50 | NUR ---
MS RN CLOSING NOTE LEFT PATIENT SLEEPING IN BED, A/Ox4, ABLE TO VERBALIZED NEEDS. PATIENT ON ROOM AIR NO S/S OF RESPIRATORY DISTRESS OR DISCOMFORT. IV ACCESS L FA #20G RUNNING NS @75 ML/HR. INTACT AND PATENT. NO C/O OF PAIN OR DISCOMFORT. PATIENT INCONTINENT. ON BEDREST. SKIN INTACT. SAFETY MEASURES IN PLACE: BED LOCKED AND IN LOWEST POSITION, HOB ELEVATED, SIDE RAILS UPx2, CALL LIGHT WITHIN REACH. WILL ENDORSE PT TO AM SHIFT NURSE FOR VOLODYMYR.
--- NOTE | 2022-11-09 07:05 | NUR ---
MS RN OPENING NOTES RECEIVED PATIENT SLEEPING IN BED, A/Ox4, ABLE TO VERBALIZED NEEDS. PATIENT ON ROOM AIR NO S/S OF RESPIRATORY DISTRESS OR DISCOMFORT. IV ACCESS L FA #20G RUNNING NS @75 ML/HR. INTACT AND PATENT. NO C/O OF PAIN OR DISCOMFORT. PATIENT INCONTINENT. ON BEDREST. SKIN INTACT. SAFETY MEASURES IN PLACE: BED LOCKED AND IN LOWEST POSITION, HOB ELEVATED, SIDE RAILS UPx2, CALL LIGHT WITHIN REACH. WILL CONTINUE TO MONITOR.
[2022-11-09 08:00] VITALS: BP_SYST 112; BP_SYST 134; BP_DIAS 62; BP_DIAS 70
[2022-11-09] MEDS: QUETIAPINE FUMARATE 100 MG TABLET PO SCH ×2 (08:04→16:16)
[2022-11-09] MEDS: GABAPENTIN 300 MG CAPSULE PO SCH ×3 (08:04→16:16)
[2022-11-09] MEDS: PANTOPRAZOLE 40 MG TABLET.DR PO SCH (08:04)
[2022-11-09] MEDS: MORPHINE SULFATE INJ 2 MG/ML DISP.SYRIN IV PRN ×4 (08:05→21:16)
--- NOTE | 2022-11-09 08:30 | NUR ---
RN NOTES PATIENT COMPLAINED OF NAUSEA AND ABDOMINAL PAIN 10/10 DURING MORNING MEDICATION. PRN MORPHINE AND ZOFRAN ADMINISTERED. WILL CONTINUE TO MONITOR.
[2022-11-09 10:19] LABS: BASOPHILS % (AUTO) 0.5 % (0.0-2.0); EOSINOPHILS % (AUTO) 1.6 % (0.0-6.0); HEMATOCRIT 42 % (39-51); HEMOGLOBIN 13.8 g/dL (13.5-17.5); LYMPHOCYTES # (AUTO) 1.1 K/uL (0.8-4.8); LYMPHOCYTES % (AUTO) 18.8 % (20.0-44.0); MEAN CORPUSCULAR HGB CONC 33 g/dl (31.0-36.0); MEAN CORPUSCULAR VOLUME 92 fL (80-96); MONOCYTES # (AUTO) 0.1 K/uL (0.1-1.30); MONOCYTES % (AUTO) 1.1 % (2.0-12.0); NEUTROPHILS # (AUTO) 4.7 K/uL (1.8-8.9); PLATELET COUNT (AUTO) 212 K/uL (150-450); RED BLOOD CELL COUNT(AUTO) 4.55 MIL/uL (4.5-6.0); WHITE BLOOD COUNT (AUTO) 6.1 K/uL (4.3-11.0)
[2022-11-09 10:44] LABS: CALCIUM, SERUM 8.4 mg/dL (8.5-10.1); CREATININE 0.9 mg/dL (0.6-1.3); MAGNESIUM 1.9 mg/dL (1.8-2.4); PHOSPHORUS 2.3 mg/dL (2.5-4.9); POTASSIUM 2.9 mmol/L (3.5-5.1)
--- NOTE | 2022-11-09 12:39 | NUR ---
RN NOTES PATIENT COMPLAINED OF PAIN 05/15, PRN MORPHINE ADMINISTERED WILL CONTINUE TO MONITOR.
[2022-11-09 16:00] VITALS: BP 107/71
[2022-11-09] MEDS ORDERED: NEUTRA PHOS 1 POWD.PACKET PO ONE (16:00)
--- NOTE | 2022-11-09 16:15 | NUR ---
RN NOTES PATIENT POTASSIUM 2.9, DR. CUTLER NOTIFIED, ORDERED 40 MEQS NOW AND 40 MEQS @1999. ORDERS CARRIED OUT.
[2022-11-09] MEDS: POTASSIUM CHLORIDE 20 MEQ TAB.PRT.SR PO SCH ×2 (16:16→21:08)
--- NOTE | 2022-11-09 16:50 | NUR ---
RN NOTES PATIENT COMPLAINED OF PAIN 9/, PRN MORPHINE ADMINISTERED. WILL CONTINUE TO MONITOR.
--- NOTE | 2022-11-09 18:44 | NUR ---
MS NERY CLOSING NOTES PATIENT SLEEPING IN BED, A/Ox4, ABLE TO VERBALIZED NEEDS. PATIENT STABLE ON ROOM AIR NO S/S OF RESPIRATORY DISTRESS OR DISCOMFORT. IV ACCESS L FA #20G RUNNING NS @75 ML/HR. INTACT AND PATENT. NO C/O OF PAIN OR DISCOMFORT. PATIENT INCONTINENT. ON BEDREST. SKIN INTACT. SAFETY MEASURES IN PLACE: BED LOCKED AND IN LOWEST POSITION, HOB ELEVATED, SIDE RAILS UPx2, CALL LIGHT WITHIN REACH. WILL CONTINUE TO MONITOR. Addendum: 11/09/22 at 1846 by EDY BIRMINGHAM RN ADDENDUM: WILL ENDORSE TO NEXT SHIFT ANY VOLODYMYR.
--- NOTE | 2022-11-09 19:55 | NUR ---
MS RN OPENING NOTES RECEIVED PATIENT SLEEPING IN BED, A/Ox4, ABLE TO VERBALIZED NEEDS. PATIENT STABLE ON ROOM AIR NO S/S OF RESPIRATORY DISTRESS OR DISCOMFORT. IV ACCESS L FA #20G RUNNING NS @75 ML/HR. INTACT AND PATENT. NO C/O OF PAIN OR DISCOMFORT. PATIENT INCONTINENT. ON BEDREST. SKIN INTACT. SAFETY MEASURES IN PLACE: BED LOCKED AND IN LOWEST POSITION, HOB ELEVATED, SIDE RAILS UPx2, CALL LIGHT WITHIN REACH.
[2022-11-09 20:00] VITALS: BP 91/48
[2022-11-09] MEDS ORDERED: POTASSIUM CHLORIDE 20 MEQ TAB.PRT.SR PO SCH (20:00)
[2022-11-09] MEDS: IV NS 0.9% 1,000 ML IV PRN (21:10)
[2022-11-10] MEDS: LORAZEPAM INJ 2 MG/ML VIAL IV PRN ×2 (00:46→11:44)
[2022-11-10] MEDS: CHLORDIAZEPOXIDE HCL 5 MG CAPSULE PO SCH ×3 (04:23→20:06)
[2022-11-10] MEDS: MORPHINE SULFATE INJ 2 MG/ML DISP.SYRIN IV PRN ×5 (04:38→20:59)
[2022-11-10 06:05] LABS: BASOPHILS % (AUTO) 0.2 % (0.0-2.0); HEMATOCRIT 39 % (39-51); HEMOGLOBIN 12.9 g/dL (13.5-17.5); LYMPHOCYTES # (AUTO) 1.8 K/uL (0.8-4.8); LYMPHOCYTES % (AUTO) 16.2 % (20.0-44.0); MEAN CORPUSCULAR HGB CONC 33 g/dl (31.0-36.0); MEAN CORPUSCULAR VOLUME 93 fL (80-96); MONOCYTES # (AUTO) 1.4 K/uL (0.1-1.30); MONOCYTES % (AUTO) 12.8 % (2.0-12.0); NEUTROPHILS # (AUTO) 7.6 K/uL (1.8-8.9); NEUTROPHILS % (AUTO) 69.8 % (43.0-81.0); PLATELET COUNT (AUTO) 166 K/uL (150-450); RED BLOOD CELL COUNT(AUTO) 4.17 MIL/uL (4.5-6.0); WHITE BLOOD COUNT (AUTO) 10.9 K/uL (4.3-11.0)
--- NOTE | 2022-11-10 06:44 | NUR ---
MS RN CLOSING NOTES PATIENT SLEEPING IN BED, A/Ox4, ABLE TO VERBALIZED NEEDS. EPISODES OF FORGETFULNESS, NEEDS TO BE CONSTANTLY REMINDED. PATIENT STABLE ON ROOM AIR NO S/S OF RESPIRATORY DISTRESS OR DISCOMFORT. IV ACCESS L FORE ARM #20G RUNNING NS @75 ML/HR. INTACT AND PATENT. NO C/O OF PAIN OR DISCOMFORT. PATIENT INCONTINENT. ON BEDREST. SKIN INTACT. ALL DUE MEDICATIONS ARE GIVEN. MADE SURE ALL NEEDS ARE MET. PM CARE AND BACK CARE DONE. PATIENT REFUSED CHANGE OF BEDDINGS BEEN OFFERING HM COUPLE OF TIMES THROUGH OUT THE NIGHT PATIENT STILL REFUSED. MADE SURE PATIENT IS COMFORTABLE. SAFETY MEASURES IN PLACE: BED LOCKED AND IN LOWEST POSITION, HOB ELEVATED, SIDE RAILS UPx2, CALL LIGHT WITHIN REACH. WILL ENDORSE TO NEXT SHIFT FOR CONTINUITY OF CARE.
[2022-11-10 07:02] LABS: ALBUMIN 2.5 g/dL (3.4-5.0); BILIRUBIN,TOTAL 1.1 mg/dL (0.2-1.0); CREATININE 1.2 mg/dL (0.6-1.3); MAGNESIUM 1.9 mg/dL (1.8-2.4); PHOSPHORUS 2.6 mg/dL (2.5-4.9); POTASSIUM 3.8 mmol/L (3.5-5.1); TOTAL PROTEIN, SERUM 5.6 g/dL (6.4-8.2)
--- NOTE | 2022-11-10 07:10 | NUR ---
MS RN OPENING NOTES RECEIVED PATIENT SLEEPING IN BED, A/Ox4, EPISODES OF FORGETFULNESS. ABLE TO VERBALIZED NEEDS. PATIENT ON ROOM AIR NO S/S OF RESPIRATORY DISTRESS OR DISCOMFORT. IV ACCESS L FA #20G RUNNING NS @75 ML/HR. INTACT AND PATENT. PATIENT INCONTINENT. ON BEDREST. SKIN INTACT. SAFETY MEASURES IN PLACE: BED LOCKED AND IN LOWEST POSITION, HOB ELEVATED, SIDE RAILS UPx2, CALL LIGHT WITHIN REACH. WILL CONTINUE TO MONITOR.
[2022-11-10 08:00] VITALS: BP 110/55
[2022-11-10] MEDS: QUETIAPINE FUMARATE 100 MG TABLET PO SCH ×2 (08:06→16:48)
[2022-11-10] MEDS: GABAPENTIN 300 MG CAPSULE PO SCH ×3 (08:06→16:48)
[2022-11-10] MEDS: PANTOPRAZOLE 40 MG TABLET.DR PO SCH (08:06)
--- NOTE | 2022-11-10 08:58 | NUR ---
RN NOTES PATIENT COMPLAINED OF PAIN 9/10 OF ABDOMEN. REQUESTED MORPHINE PRN. ADMINISTERED PRN MORPHINE. WILL CONTINUE TO MONITOR.
--- NOTE | 2022-11-10 11:59 | NUR ---
RN NOTES NEW IV INSERTED L UPPER ARM #22G INTACT AND PATENT. PATIENT REQUESTED PRN ATIVAN FOR ANXIETY, WILL CONTINUE TO MONITOR.
[2022-11-10 16:00] VITALS: BP 96/67
--- NOTE | 2022-11-10 18:45 | NUR ---
MS RN CLOSING NOTES RECEIVED PATIENT SLEEPING IN BED, A/Ox4, EPISODES OF FORGETFULNESS. ABLE TO VERBALIZED NEEDS. PATIENT STABLE ON ROOM AIR NO S/S OF RESPIRATORY DISTRESS OR DISCOMFORT. IV ACCESS L UPPER ARM #22G RUNNING NS @75 ML/HR. INTACT AND PATENT. PATIENT INCONTINENT. ON BEDREST. SKIN INTACT. ALL DUE MEDICATION ADMINISTERED. SAFETY MEASURES MAINTAINED: BED LOCKED AND IN LOWEST POSITION, HOB ELEVATED, SIDE RAILS UPx2, CALL LIGHT WITHIN REACH. WILL ENDORSE TO NEXT SHIFT ANY VOLODYMYR.
--- NOTE | 2022-11-10 19:30 | NUR ---
MS RN OPENING NOTE RECEIVED PATIENT IN BED, AWAKE, ALERT AND ORIENTED X4 WITH FORGETFULNESS. ABLE TO MAKE NEEDS KNOWN. AFEBRILE AND NOT IN ANY FORM OF ACUTE DISTRESS. BREATHING EVEN AND NON LABORED. WITH IV ACCESS ON LFA 20G RUNNING WITH NS AT 75ML/HR. SAFETY MEASURES IN PLACE. KEPT BED IN LOCKED AND IN LOW POSITION. SIDE RAILS UP X2. ADVISED TO USE THE CALL LIGHT WHEN IN NEED OF ASSISTANCE.
[2022-11-10 20:00] VITALS: BP 112/69
[2022-11-10] MEDS: IV NS 0.9% 1,000 ML IV PRN (22:03)
[2022-11-11] MEDS: CHLORDIAZEPOXIDE HCL 5 MG CAPSULE PO SCH ×3 (04:02→21:27)
--- NOTE | 2022-11-11 05:30 | NUR ---
MS RN NOTE PATIENT'S IV ACCESS ON LEFT UPPER ARM WAS NOTED TO BE OUT AND INSERTION SITE WAS ALREADY INFILTRATED. REMOVED OLD IV SITE AND REINSERTED ANOTHER ONE ON R HAND 22G. TOLERATED THE PROCEDURE WELL.
[2022-11-11] MEDS: MORPHINE SULFATE INJ 2 MG/ML DISP.SYRIN IV PRN ×4 (05:31→22:20)
[2022-11-11 06:20] LABS: BASOPHILS % (AUTO) 0.2 % (0.0-2.0); EOSINOPHILS % (AUTO) 2.4 % (0.0-6.0); HEMATOCRIT 41 % (39-51); HEMOGLOBIN 13.6 g/dL (13.5-17.5); LYMPHOCYTES # (AUTO) 1.9 K/uL (0.8-4.8); LYMPHOCYTES % (AUTO) 22.3 % (20.0-44.0); MEAN CORPUSCULAR HGB CONC 33 g/dl (31.0-36.0); MEAN CORPUSCULAR VOLUME 93 fL (80-96); MONOCYTES # (AUTO) 0.8 K/uL (0.1-1.30); MONOCYTES % (AUTO) 9.7 % (2.0-12.0); NEUTROPHILS # (AUTO) 5.4 K/uL (1.8-8.9); NEUTROPHILS % (AUTO) 65.4 % (43.0-81.0); PLATELET COUNT (AUTO) 135 K/uL (150-450); RED BLOOD CELL COUNT(AUTO) 4.44 MIL/uL (4.5-6.0); WHITE BLOOD COUNT (AUTO) 8.3 K/uL (4.3-11.0)
--- NOTE | 2022-11-11 06:21 | NUR ---
MS RN CLOSING NOTE PATIENT IN BED, ASLEEP BUT EASY TO AROUSE AND RESPONSIVE. ABLE TO MAKE NEEDS KNOWN. AFEBRILE AND NOT IN ANY FORM OF ACUTE DISTRESS. BREATHING EVEN AND NON LABORED. WITH IV ACCESS ON R HAND 22G RUNNING WITH NS AT 75ML/HR. MEDICATED ORDERED. MONITORED FOR ANY S/SX. OF ALCOHOL WITHDRAWAL. ENCOURAGED TO TURN AND REPOSITION EVERY 2 HOURS AND TOLERATED TO PROMOTE PROPER CIRCULATION AND COMFORT. SAFETY MEASURES IN PLACE. KEPT BED IN LOCKED AND IN LOW POSITION. SIDE RAILS UP X2. ADVISED TO USE THE CALL LIGHT WHEN IN NEED OF ASSISTANCE. ALL NURSING NEEDS ATTENDED. ENDORSED TO INCOMING SHIFT FOR CONTINUITY OF CARE.
[2022-11-11 07:00] LABS: ALBUMIN 2.4 g/dL (3.4-5.0); BILIRUBIN,TOTAL 0.7 mg/dL (0.2-1.0); CALCIUM, SERUM 7.8 mg/dL (8.5-10.1); PHOSPHORUS 2.9 mg/dL (2.5-4.9); POTASSIUM 3.7 mmol/L (3.5-5.1); TOTAL PROTEIN, SERUM 5.7 g/dL (6.4-8.2)
[2022-11-11] MEDS: PANTOPRAZOLE 40 MG TABLET.DR PO SCH ×2 (07:47→21:28)
[2022-11-11 08:00] VITALS: BP 98/57
--- NOTE | 2022-11-11 08:05 | NUR ---
MS RN OPENING NOTE RECEIVED PATIENT IN BED, AWAKE, A/OX4 WITH FORGETFULNESS. ABLE TO MAKE NEEDS KNOWN. AFEBRILE AND NOT IN ANY FORM OF ACUTE DISTRESS. BREATHING EVEN AND NON LABORED. WITH IV ACCESS ON RHAND 22G RUNNING WITH NS AT 75ML/HR. SAFETY MEASURES IN PLACE. KEPT BED IN LOCKED AND IN LOW POSITION. SIDE RAILS UP X2. ADVISED TO USE THE CALL LIGHT WHEN IN NEED OF ASSISTANCE. WILL CONTINUE TO MONITOR.
[2022-11-11] MEDS: QUETIAPINE FUMARATE 100 MG TABLET PO SCH ×2 (08:23→17:00)
[2022-11-11] MEDS: GABAPENTIN 300 MG CAPSULE PO SCH ×3 (08:23→17:00)
--- NOTE | 2022-11-11 10:00 | NUR ---
RN NOTES SECURED CONSENT FOR EGD, PATIENT KEEP ON NPO ORDERED. WILL MONITOR.
[2022-11-11] MEDS: IV NS 0.9% 1,000 ML IV PRN (12:43)
[2022-11-11] MEDS ORDERED: ANESTHESIA TRAY IN PYXIS 1 EA TRAY MC ONE (14:26)
[2022-11-11 16:00] VITALS: BP 125/71
[2022-11-11] MEDS: SUCRALFATE 1 G TABLET PO SCH ×2 (17:00→17:30)
--- NOTE | 2022-11-11 18:41 | NUR ---
RN NOTES PATIENT WENT TO SURGERY FOR EGD PROCEDURE, STABLE, A/OX4. WILL ENDORSE TO INCOMING NIGHT NURSE
[2022-11-11] MEDS ORDERED: MIDAZOLAM HCL 2 MG/2ML VIAL ONE (18:45)
--- NOTE | 2022-11-11 19:45 | NUR ---
RN NOTES RECEIVED PATIENT FROM OR. PATIENT IS AWAKE A/OX3-4. IV ACCESS ON RIGHT HAND G#22 NOTED TO BE INTACT AND PATENT. INFUSING NS 0.9% @ 75ML/HR. NO COMPLAINS OF ANY PAIN AT THIS TIME. NOT IN DISTRESS. PATIENT MADE COMFORTABLE. SAFETY MEASURES ARE IMPLEMENTED; BED LOCK AND IN LOWEST POSITION. HOB SLIGHTLY ELEVATED, SIDE RAILS UP X3. CALL LIGHT AND BEDSIDE TABLE WITHIN PATIENTS REACH.
[2022-11-11 20:00] VITALS: BP 105/51
--- NOTE | 2022-11-12 00:01 | NUR ---
RN NOTES PATIENT WAS ASKING FOR FOOD. MD ORDERED DIET TOLERATED AFTER EGD. SWALLOWING WAS ASSESSED. PATIENT IS ABLE TO SWALLOW WITH OUT DIFFICULTY. PATIENT WAS GIVEN FOOD FROM CLEAR LIQUIDS AND SOFT DIET LIKE PUDDING PATIENT IS TOLERATING WELL.
[2022-11-12] MEDS: MORPHINE SULFATE INJ 2 MG/ML DISP.SYRIN IV PRN ×3 (04:24→13:06)
[2022-11-12] MEDS: CHLORDIAZEPOXIDE HCL 5 MG CAPSULE PO SCH ×2 (04:25→12:22)
--- NOTE | 2022-11-12 06:44 | NUR ---
MS RN CLOSING NOTES PATIENT SLEEPING IN BED, A/Ox4, ABLE TO VERBALIZED NEEDS. EPISODES OF FORGETFULNESS, NEEDS TO BE CONSTANTLY REMINDED. PATIENT STABLE ON ROOM AIR NO S/S OF RESPIRATORY DISTRESS OR DISCOMFORT. IV ACCESS ON RIGHT HAND G#22 NOTED TO BE INTACT AND PATENT. INFUSING NS 0.9% @ 75ML/HR. NO COMPLAINS OF PAIN OR DISCOMFORT. ON BEDREST. SKIN INTACT. ALL DUE MEDICATIONS ARE GIVEN. MADE SURE ALL NEEDS ARE MET. PM CARE AND BACK CARE DONE. MADE SURE PATIENT IS COMFORTABLE. SAFETY MEASURES IN PLACE: BED LOCKED AND IN LOWEST POSITION, HOB ELEVATED, SIDE RAILS UPx2, CALL LIGHT WITHIN REACH. WILL ENDORSE TO NEXT SHIFT FOR CONTINUITY OF CARE.
[2022-11-12 07:16] LABS: ALBUMIN 2.3 g/dL (3.4-5.0); BILIRUBIN,TOTAL 0.4 mg/dL (0.2-1.0); CALCIUM, SERUM 8.1 mg/dL (8.5-10.1); CREATININE 0.9 mg/dL (0.6-1.3); MAGNESIUM 1.9 mg/dL (1.8-2.4); PHOSPHORUS 4.3 mg/dL (2.5-4.9); POTASSIUM 3.7 mmol/L (3.5-5.1); TOTAL PROTEIN, SERUM 5.4 g/dL (6.4-8.2)
--- NOTE | 2022-11-12 07:16 | NUR ---
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 EPISODES OF FORGETFULNESS. PATIENT STABLE ON ROOM AIR NO S/S OF RESPIRATORY DISTRESS OR DISCOMFORT. IV ACCESS ON RIGHT HAND G#22 NOTED TO BE INTACT AND PATENT. INFUSING NS 0.9% @ 75ML/HR. PATIENT IS COMFORTABLE. SAFETY MEASURES IN PLACE: BED LOCKED AND IN LOWEST POSITION, HOB ELEVATED, WILL CONTINUE TO MONITOR.
[2022-11-12 07:30] LABS: BASOPHILS % (AUTO) 0.5 % (0.0-2.0); EOSINOPHILS % (AUTO) 7.8 % (0.0-6.0); HEMATOCRIT 40 % (39-51); LYMPHOCYTES # (AUTO) 1.4 K/uL (0.8-4.8); MEAN CORPUSCULAR HGB CONC 32 g/dl (31.0-36.0); MEAN CORPUSCULAR VOLUME 92 fL (80-96); MONOCYTES # (AUTO) 0.8 K/uL (0.1-1.30); MONOCYTES % (AUTO) 14.8 % (2.0-12.0); NEUTROPHILS # (AUTO) 2.8 K/uL (1.8-8.9); NEUTROPHILS % (AUTO) 51.9 % (43.0-81.0); PLATELET COUNT (AUTO) 122 K/uL (150-450); RED BLOOD CELL COUNT(AUTO) 4.37 MIL/uL (4.5-6.0); WHITE BLOOD COUNT (AUTO) 5.4 K/uL (4.3-11.0)
[2022-11-12 08:00] VITALS: BP 135/70
[2022-11-12] MEDS: GABAPENTIN 300 MG CAPSULE PO SCH ×2 (08:22→12:22)
[2022-11-12] MEDS: QUETIAPINE FUMARATE 100 MG TABLET PO SCH (08:22)
[2022-11-12] MEDS: PANTOPRAZOLE 40 MG TABLET.DR PO SCH (08:22)
[2022-11-12] MEDS: SUCRALFATE 1 G TABLET PO SCH ×2 (08:22→12:22)
[2022-11-12] MEDS ORDERED: SUCR1TAB31 PO (10:24)
[2022-11-12] MEDS ORDERED: PANT40TA49 PO (10:24)
[2022-11-12] MEDS ORDERED: THIA100T74 PO (10:24)
--- NOTE | 2022-11-12 15:00 | NUR ---
DISCHARGE NOTE PATIENT DISCHARGED TO HOME. [facility] PROVIDED FOR PATIENT FOR TRANSPORTATION. PATIENT SIGNED PROPERTY AND EXIT CARE FORMS. PATIENT RECEIVED ALL PROPERTY, AND ALL DISCHARGE PAPERWORK. PATIENTS VITALS WERE NORMAL, PATIENT STATED HE WAS NOT IN PAIN. PATIENT WAS AMBULATORY WITH NO SOB. PATIENT WAS TAKEN OUT TO [facility] VIA WHEEL CHAIR. IV AND WRISTBAND REMOVED FROM PATIENT.
== END 2022-11-12 15:05 | disposition home or self-care (01) | DRG 243 ==
LOC: ER 11:30 → MED 16:51
PROVIDERS: ADMIT Internal Medicine; ATTEND Nurse Practitioner Acute Care
PROC: 0DB58ZX Excision of Esophagus, Via Natural or Artificial Opening Endoscopic, Diagnostic (ICD-10-PCS; principal; 2022-11-11)
DX: K20.90 Esophagitis, unspecified without bleeding (principal); E87.20 Acidosis, unspecified; K29.70 Gastritis, unspecified, without bleeding; F10.239 Alcohol dependence with withdrawal, unspecified; K57.30 Diverticulosis of large intestine without perforation or abscess without bleeding; Y90.0 Blood alcohol level of less than 20 mg/100 ml; Z20.822 Contact with and (suspected) exposure to COVID-19; R13.10 Dysphagia, unspecified; F43.10 Post-traumatic stress disorder, unspecified; Z79.899 Other long term (current) drug therapy; F19.10 Other psychoactive substance abuse, uncomplicated; F20.9 Schizophrenia, unspecified; D72.829 Elevated white blood cell count, unspecified; R59.0 Localized enlarged lymph nodes; K80.20 Calculus of gallbladder without cholecystitis without obstruction; N20.0 Calculus of kidney; G62.9 Polyneuropathy, unspecified
CPT/HCPCS: 36415; 80048-TC; 80053-TC; 80076-TC; 81001; 83735-TC; 84100-TC; 85025-TC; 85610-TC; 85730-TC; 87081-TC; A4223; C9803; G0378; G0480; J2060; J2250; J2270; J2405; J2704; J3490; J7030; J7040

== ENCOUNTER 2022-12-07 17:16 | Emergency (ER) | payer OTHER ==
[~2022-12-07] VITALS: Ht 180.3 cm; Wt 80.7 kg
[~2022-12-07 17:16] MED LIST changes: -HYDR-3976 PO; -HYDR-3980 PO; +PALI9TAB PO; +PANT40TA49 PO; +SUCR1TAB31 PO; +THIA100T74 PO
--- NOTE | 2022-12-07 18:50 | NUR ---
Patient AOx4 able to express his concerns, patient c/o nausea and vomiting. Emesis is dark.
[2022-12-07] MEDS ORDERED: ONDANSETRON HCL/PF 4 MG/2 ML VIAL IVP ONE (19:00)
[2022-12-07] MEDS ORDERED: IV NS 0.9% 1,000 ML BAG IV ONE (19:00)
[2022-12-07] MEDS ORDERED: ONDANSETRON HCL/PF 4 MG/2 ML VIAL ONE (19:16)
--- NOTE | 2022-12-07 19:23 | NUR ---
Hand off report given to Mukul, for continuity of care
[2022-12-07 19:29] LABS: ALBUMIN 3.6 g/dL (3.4-5.0); BILIRUBIN,DIRECT 0.3 mg/dL (0.0-0.2); BILIRUBIN,TOTAL 0.9 mg/dL (0.2-1.0); CALCIUM, SERUM 9.6 mg/dL (8.5-10.1); CREATININE 1.2 mg/dL (0.6-1.3); POTASSIUM 3.4 mmol/L (3.5-5.1); TOTAL PROTEIN, SERUM 8.5 g/dL (6.4-8.2)
[2022-12-07] MEDS ORDERED: LORAZEPAM INJ 2 MG/ML VIAL IV ONE ×5 (19:30→23:00)
[2022-12-07] MEDS ORDERED: LORAZEPAM INJ 2 MG/ML VIAL ONE ×4 (19:40→22:36)
[2022-12-07 19:59] LABS: BASOPHILS % (AUTO) 0.2 % (0.0-2.0); EOSINOPHILS % (AUTO) 0.2 % (0.0-6.0); HEMATOCRIT 53 % (39-51); HEMOGLOBIN 17.2 g/dL (13.5-17.5); LYMPHOCYTES # (AUTO) 1.4 K/uL (0.8-4.8); LYMPHOCYTES % (AUTO) 8.9 % (20.0-44.0); MEAN CORPUSCULAR HGB CONC 33 g/dl (31.0-36.0); MEAN CORPUSCULAR VOLUME 93 fL (80-96); MONOCYTES # (AUTO) 0.8 K/uL (0.1-1.30); MONOCYTES % (AUTO) 4.8 % (2.0-12.0); NEUTROPHILS # (AUTO) 13.9 K/uL (1.8-8.9); NEUTROPHILS % (AUTO) 85.9 % (43.0-81.0); PLATELET COUNT (AUTO) 338 K/uL (150-450); RED BLOOD CELL COUNT(AUTO) 5.65 MIL/uL (4.5-6.0); WHITE BLOOD COUNT (AUTO) 16.2 K/uL (4.3-11.0)
[2022-12-07] MEDS ORDERED: ONDA4TAB11 PO (21:20)
[2022-12-07] MEDS ORDERED: CHLO25CA22 PO (21:20)
--- NOTE | 2022-12-07 22:46 | NUR ---
IV removed. Catheter intact and site benign. Pressure and 4x4 applied to site. No bleeding noted.Patient discharged to home in stable condition. Written and verbal after care instructions given. Patient verbalizes understanding of instruction.
[2022-12-07 22:47] VITALS: BP 121/67
--- NOTE | 2022-12-15 07:03 | NUR ---
IV NS 1000ML STOP TIME 12/07/222004H
== END 2022-12-07 22:47 | disposition home or self-care (01) ==
LOC: ER 17:18
DX: F10.139 Alcohol abuse with withdrawal, unspecified (principal); Z79.899 Other long term (current) drug therapy; Z60.2 Problems related to living alone; Y90.9 Presence of alcohol in blood, level not specified
CPT/HCPCS: 99284; 96374; 96361; 96375; 96376; 85025; 80048; 83690; 80076; 36415; J2060 ×4; J2405; J7030